=== PATIENT | male | born 1990 | race Caucasian/White ===

== ENCOUNTER 2016-10-22 10:03 | Emergency (ER) | payer MEDICAID ==
[2013-04-15 14:02] VITALS: BMI 17.8
== END 2016-10-22 11:40 | disposition home or self-care (01) ==
LOC: D.ER 10:03
DX: S60.051A Contusion of right little finger without damage to nail, initial encounter (principal); Y93.83 Activity, rough housing and horseplay; Y93.89 Activity, other specified; Y92.019 Unspecified place in single-family (private) house as the place of occurrence of the external cause

== ENCOUNTER 2017-01-18 17:04 | Emergency (ER) | payer MEDICAID ==
[2013-04-15 14:02] VITALS: BMI 17.8
== END 2017-01-18 18:24 | disposition home or self-care (01) ==
LOC: D.ER 17:04
DX: S99.922A Unspecified injury of left foot, initial encounter (principal); Y93.83 Activity, rough housing and horseplay; Y93.89 Activity, other specified; Y92.89 Other specified places as the place of occurrence of the external cause; F17.200 Nicotine dependence, unspecified, uncomplicated; M79.671 Pain in right foot

== ENCOUNTER 2017-08-26 22:04 | Emergency (ER) | payer MEDICAID ==
[2013-04-15 14:02] VITALS: BMI 17.8
== END 2017-08-26 23:35 | disposition home or self-care (01) ==
LOC: D.ER 22:04
DX: S20.219A Contusion of unspecified front wall of thorax, initial encounter (principal); X58.XXXA Exposure to other specified factors, initial encounter; Y93.89 Activity, other specified; Y92.029 Unspecified place in mobile home as the place of occurrence of the external cause

== ENCOUNTER 2017-09-22 13:26 | Emergency (ER) | payer MEDICAID ==
[2013-04-15 14:02] VITALS: BMI 17.8
== END 2017-09-22 15:30 | disposition home or self-care (01) ==
LOC: D.ER 13:26
DX: S69.92XA Unspecified injury of left wrist, hand and finger(s), initial encounter (principal); W26.0XXA Contact with knife, initial encounter; Y93.89 Activity, other specified; Y92.019 Unspecified place in single-family (private) house as the place of occurrence of the external cause; S61.213A Laceration without foreign body of left middle finger without damage to nail, initial encounter; S61.215A Laceration without foreign body of left ring finger without damage to nail, initial encounter